=== PATIENT | male | born 1960 | race Caucasian/White ===

== ENCOUNTER → 2020-09-27 09:38 | Outpatient (REF) | payer OTHER, MEDICAID, SELFPAY | LOC: ANHLAB 09:38 | PROVIDERS: PCP Internal Medicine; Visit Provider Nurse Practitioner | DX: C44.111 Basal cell carcinoma of skin of unspecified eyelid, including canthus (principal) | CPT/HCPCS: 88305 ==

== ENCOUNTER → 2020-11-25 09:25 | Outpatient (REF) | payer OTHER, MEDICAID, SELFPAY | LOC: ANHLAB 09:25 | PROVIDERS: PCP Internal Medicine; Visit Provider Nurse Practitioner | DX: C44.111 Basal cell carcinoma of skin of unspecified eyelid, including canthus (principal) | CPT/HCPCS: 88305; 88331 ==

== ENCOUNTER 2024-09-23 14:37 | Emergency (ER) | payer MEDICARE, MEDICAID, SELFPAY ==
[2024-09-23] VITALS (7 sets, daily range): BP systolic 175–223; BP diastolic 94–109; PULSE 68–84; RESP 15–18; TEMP 36.6–36.7; O2SAT 98–100
--- OUTSIDE RECORDS SUMMARY | 2024-09-23 15:13 | XMS_ITS | Continuity of Care Document ---
Author Organization [facility] Main Address [address] [place] [address] Insurance Providers Payer Plan Claims Address Claims Phone Policy Number Group Number Relation Employer Guarantor Name Guarantor Guarantor Address Guarantor Phone [employer] [address], [place] [address] tel:[phone] [id number] Self Fredrick Nye [address] [place] [id number] [employer] [address], [place] [address] tel:[phone] Self Fredrick Wu [address] [place] [address] [id number] [facility] [address] [address] [address] tel:[phone] Self Fredrick Wu [address] [place] [address] [id number] Problems Unknown Problems Results No Results Allergies, adverse reactions, alerts No known allergies and adverse reactions Immunizations Vaccine Route Date Status influenza 05/30/2024 Completed Pneumococcal 05/30/2024 Completed Zoster recombinant 05/30/2024 Completed Medications No administered medications reported Vital Signs Date Vital Result Comment 09/21/2023 Inhaled Oxygen Concentration (3150-0) 21. 0 % N Faces Pain Scale (06804-2) 0.0 N Temperature (8310-5) 97.5 [degF] N Oxygen Saturation (38110-8) 96 % N Respiratory Rate (9279-1) 16 /min N Heart Rate (8867-4) 70 /min N Blood Pressure Systolic (8480-6) 144 mm[Hg] N Blood Pressure Diastolic (8462-4) 78 mm[Hg] N Body Height (8302-2) 66 [in_i] N Body Weight (37549-2) 215 [lb_av] N Body Mass Index (65163-8) 34.7 kg/m2 N 03/23/2024 Inhaled Oxygen Concentration (3150-0) 21. 0 % N Temperature (8310-5) 97.8 [degF] N Oxygen Saturation (13659-6) 98 % N Respiratory Rate (9279-1) 16 /min N Heart Rate (8867-4) 60 /min N Blood Pressure Systolic (8480-6) 139 mm[Hg] N Blood Pressure Diastolic (8462-4) 75 mm[Hg] N Body Height (8302-2) 66 [in_i] N 06/01/2024 Inhaled Oxygen Concentration (3150-0) 21. 0 % N Temperature (8310-5) 97.9 [degF] N Oxygen Saturation (69978-7) 97 % N Respiratory Rate (9279-1) 16 /min N Heart Rate (8867-4) 74 /min N Blood Pressure Systolic (8480-6) 153 mm[Hg] N Blood Pressure Diastolic (8462-4) 76 mm[Hg] N Body Height (8302-2) 66 [in_i] N Body Weight (93238-5) 221 [lb_av] N Body Mass Index (23834-5) 35.7 kg/m2 N Social History No smoking Hx information available Functional Status Category Condition Date Problem (Feeding: Independent) Feeding: Independ ent 09/21/2023 Problem (Bathing: Independen t (or in shower)) Bathing: Independent (or in shower) 09/21/2023 Problem (Grooming: Independe nt face/hair/teeth/ shaving (implements provided)) Grooming: Independent face/hair/teeth/ shaving (implements provided) 09/21/2023 Problem (Dressing: Independe nt (including buttons, zips, laces, etc.)) Dressing: Independent (including buttons, zips, laces, etc.) 09/21/2023 Problem (Bowels: Continent) Bowels: Continent Problem (Bladder: Continent) Bladder: Continent 09/21/2023 Problem (Toilet use: Indepen dent (on and off, dressing, wiping)) Toilet use: Independent (on and off, dressing, wiping) 09/21/2023 Problem (Transfers (bed to c hair and back): Independent) Transfers (bed to chair and back): Independent 09/21/2023 Problem (Mobility (on level surfaces): Independent (but may use any aid; for example, stick) >50 yards) Mobility (on level surfaces): Independent (but may use any aid; for example, stick) >50 yards 09/21/2023 Problem (Stairs: Independent) Stairs: Independen t 09/21/2023 Problem (Total score: 100) Total score: 100 08/30 Problem (Bathing: Independen t (or in shower)) Bathing: Independent (or in shower) 05/31/2024 Problem (Stairs: Independent) Stairs: Independen t 05/31/2024 Problem (Feeding: Independent) Feeding: Independ ent 05/31/2024 Problem (Mobility (on level surfaces): Independent (but may use any aid; for example, stick) >50 yards) Mobility (on level surfaces): Independent (but may use any aid; for example, stick) >50 yards 05/31/2024 Problem (Bowels: Continent) Bowels: Continent Problem (Total score: 100) Total score: 100 04/2024 Problem (Dressing: Independe nt (including buttons, zips, laces, etc.)) Dressing: Independent (including buttons, zips, laces, etc.) 05/31/2024 Problem (Toilet use: Indepen dent (on and off, dressing, wiping)) Toilet use: Independent (on and off, dressing, wiping) 05/31/2024 Problem (Grooming: Independe nt face/hair/teeth/ shaving (implements provided)) Grooming: Independent face/hair/teeth/ shaving (implements provided) 05/31/2024 Problem (Transfers (bed to c hair and back): Independent) Transfers (bed to chair and back): Independent 05/31/2024 Problem (Bladder: Continent) Bladder: Continent 05/31/2024 Problem (Feeding: Independent) Feeding: Independ ent 06/01/2024 Problem (Bathing: Independen t (or in shower)) Bathing: Independent (or in shower) 06/01/2024 Problem (Grooming: Independe nt face/hair/teeth/ shaving (implements provided)) Grooming: Independent face/hair/teeth/ shaving (implements provided) 06/01/2024 Problem (Dressing: Independe nt (including buttons, zips, laces, etc.)) Dressing: Independent (including buttons, zips, laces, etc.) 06/01/2024 Problem (Bowels: Continent) Bowels: Continent Problem (Bladder: Continent) Bladder: Continent 06/01/2024 Problem (Toilet use: Indepen dent (on and off, dressing, wiping)) Toilet use: Independent (on and off, dressing, wiping) 06/01/2024 Problem (Transfers (bed to c hair and back): Independent) Transfers (bed to chair and back): Independent 06/01/2024 Problem (Mobility (on level surfaces): Independent (but may use any aid; for example, stick) >50 yards) Mobility (on level surfaces): Independent (but may use any aid; for example, stick) >50 yards 06/01/2024 Problem (Stairs: Independent) Stairs: Independen t 06/01/2024 Problem (Total score: 100) Total score: 100 04/2024 Mental Status Category Condition Date Cognitive function Normal 06/01/2024
--- OUTSIDE RECORDS SUMMARY | 2024-09-23 15:13 | XMS_ITS | Referral Summary ---
Author Organization [facility] Care Team Providers Care Catheter Builder Name Role Phone John Syed MD Primary Care Provider [phone] Allergies Active Allergy Reactions Criticality Noted Date Comments Metformin Diarrhea High 08/30/2019 Medications albuterol HFA (PROVENTIL HFA,VENTOLIN HFA,PROAIR HFA) 90 mcg/actuation inhaler Inhale 2 puffs every 6 (six) hours as needed 05/28/2019 Active amLODIPine (NORVASC) 10 mg tablet 09/26/2020 Active atorvastatin (LIPITOR) 80 mg tablet 09/26/2020 Active aspirin 81 mg enteric coated tablet Take 81 mg by mouth daily 01/18/2020 Active carBAMazepine (TEGretol) 200 mg tablet 09/26/2020 Active clopidogreL (PLAVIX) 75 mg tablet 09/26/2020 Active irbesartan (AVAPRO) 150 mg tablet 09/26/2020 Active levothyroxine (SYNTHROID) 50 mcg tablet 09/26/2020 Active metFORMIN XR (GLUCOPHAGE XR) 750 mg 24 hr tablet 10/15/2020 Active metoprolol XL (TOPROL-XL) 50 mg extended release tablet 09/26/2020 Acti ve omeprazole (PriLOSEC) 40 mg capsule 09/26/2020 Active potassium chloride ER 20 mEq CR tablet 09/26/2020 Activ e tamsulosin (FLOMAX) 0.4 mg extended release capsule 09/26/2020 Active topiramate (TOPAMAX) 100 mg tablet 09/26/2020 Active traZODone (DESYREL) 150 mg tablet 09/26/2020 Active venlafaxine (EFFEXOR) 75 mg tablet 09/26/2020 Active Active Problems Problem Noted Date Diagnosed 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 Immunizations Immunization Administration Dates Next Due Mera (J&J) SARS-CoV-2 Vaccination 05/29/2020 Social History Tobacco Use Types Packs/Day Years Used Date Smoking Tobacco: Never Smokeless Tobacco: Never Personal Safety Answer Date Recorded Getting School Help Needed Not on file 05/15 Sex and Gender Information Value Date Recorded Sex Assigned at Not on file Legal Sex Male 9:49 AM CDT Gender Identity Not on file Sexual Orientation Not on file Last Filed Vital Signs Vital Sign Reading Time Taken Comments Blood Pressure - - Pulse - - Temperature 36.6 C (97.8 F) 10/15/2020 1:13 PM CDT Respiratory Rate - - Oxygen Saturation - - Inhaled Oxygen Concentration - - Weight 102.1 kg (225 lb) 10/15/2020 1:13 PM CDT Height 167.6 cm (5' 6) 10/15/2020 1:13 PM CDT Body Mass Index 36.32 10/15/2020 1:13 PM CDT Plan of Treatment Not on file Insurance [facility] [employer] Care Teams Catheter Builder Relationship Specialty Start Date End Date John Syed MD PCP - General Family Practice 07/16/20
--- OUTSIDE RECORDS SUMMARY | 2024-09-23 15:13 | XMS_ITS | Clinical Summary ---
Author Organization [facility] HealthCare Care Team Providers Care Special Effects Artist Name Role Phone John Syed MD Primary Care Provider [phone] Allergies Active Allergy Reactions Criticality Noted Date [...] Next Due Mera (J&J) SARS-CoV-2 Vaccination 05/29/2020 Medical History Medical History Date Comments Heart disease Diabetes (HCC) History of kidney problems Family History Medical History Relation Name Comments Heart disease Other Relation Name Status Comments Other Social History Tobacco Use Types Packs/Day Years Used Date Smoking Tobacco: Never Smokeless Tobacco: Never Personal Safety Answer Date Recorded Getting School Help Needed Not on file 05/15 Sex and Gender Information Value Date Recorded Sex Assigned at Not on file Legal Sex Male 9:49 AM CDT Gender Identity Not on file Sexual Orientation Not on file Obstetrics History Last Filed Vital Signs Vital Sign Reading [...] Plan of Treatment Not on file Insurance [facility] [employer] Care Teams Special Effects Artist Relationship Specialty Start Date End Date John Syed MD PCP - General Family Practice 07/16/20
--- NOTE | 2024-09-23 15:45 | ED.RECABL ---
HPI - Recheck/Abnormal Lab/Rx General Chief Complaint: Recheck/Abnormal Lab/Rx Stated Complaint: headache, htn Time Seen by Provider: 09/23/24 14:49 Source: patient and RN notes reviewed Mode of arrival: ambulatory Limitations: no limitations History of Present Illness HPI narrative: 64 y/o WM in the ED from [facility] with elevated BP. PMI of hypertension, cerebral palsy, diabetes, CAD, and seizures. Pt has hx of HTN, currently on Amlodipine and Losartan. Pt endorses migraine KEMP, no worse than normal, usually take Tylenol for KEMP. States KEMP to front of head, near eyes. Pt denies photophobia, vision issues, N/V. Pt denies CP, SOB, abd pain, dizziness. Pt states he took all the meds the CT gave him this am. Patient also endorsing increased seizure activity, denies loss of consciousness and/or bowel and bladder. States his right arm is shaking a lot lately. Related Data Home Medications ?Medication ?Instructions ?Recorded ?Confirmed ?Last Taken ?Type albuterol sulfate 90 mcg/actuation 1 inh inhalation Q4H 09/27/20 Unknown History aerosol inhaler (ProAir HFA) amlodipine 10 mg tablet 10 mg PO DAILY 09/27/20 Unknown History aspirin 81 mg tablet,delayed 81 mg PO DAILY 09/27/20 Unknown History release (Adult Aspirin Regimen) atorvastatin 80 mg tablet 80 mg PO DAILY 09/27/20 Unknown History carbamazepine 200 mg tablet 200 mg PO Q12H 09/27/20 Unknown History clopidogrel 75 mg tablet 75 mg PO DAILY 09/27/20 Unknown History folic acid 1 mg tablet 1 mg PO DAILY 09/27/20 Unknown History irbesartan 150 mg tablet 150 mg PO DAILY 09/27/20 Unknown History levothyroxine 50 mcg capsule 50 mcg PO DAILY 09/27/20 Unknown History metoprolol succinate 50 mg 50 mg PO DAILY 09/27/20 Unknown History tablet,extended release 24 hr nitroglycerin 0.4 mg sublingual 0.4 mg sublingual Q5M PRN 09/27/20 Unknown History tablet (Nitrostat) omeprazole 40 mg capsule,delayed 40 mg PO DAILY 09/27/20 Unknown History release potassium chloride 20 mEq oral 20 meq PO DAILY 09/27/20 Unknown History packet tamsulosin 0.4 mg capsule 0.4 mg PO DAILY 09/27/20 Unknown History topiramate 100 mg tablet 100 mg PO DAILY 09/27/20 Unknown History tramadol 50 mg tablet 50 mg PO Q6H PRN 09/27/20 Unknown History trazodone 150 mg tablet 150 mg PO QHS PRN 09/27/20 Unknown History venlafaxine 75 mg tablet 75 mg PO DAILY 09/27/20 Unknown History Allergies Allergy/AdvReac Type Severity Reaction Status Date / Time metformin Allergy Diarrhea Verified 09/23/24 14:48 [facility] Past Medical History Medical History GI bleed Seizure disorder Hypertension Diabetes Cerebral palsy CAD (coronary artery disease) Family History Family History Other Cerebrovascular accident Diabetes mellitus Family history of seizure disorder Social History Social History Second hand tobacco smoke exposure: No Alcohol intake: never Exam Narrative: GENERAL: Well-appearing, well-nourished, and in no acute distress. HEAD: Normocephalic, atraumatic. EYES: PERRLA and EOMI. ENT: Nares clear, no rhinorrhea or epistaxis. Mucous membranes moist. NECK: Supple. CHEST: Clear to auscultation. No respiratory distress. HEART: Regular rate and rhythm. No murmur heard. Normal peripheral pulses. ABDOMEN: Soft, nontender, nondistended, normal active bowel sounds. EXTREMITIES: Normal range of motion to left, minimal w/ right d/t cerebral palsy. No edema. SKIN: Warm, dry, no rash. NEURO: right UE contracture and noted tremor. Alert and oriented x3. PSYCH: Normal mood and affect. Course Vital Signs Vital signs: Vital Signs Temperature 36.7 C 09/23/24 14:43 Pulse Rate 68 09/23/24 14:43 Respiratory Rate 16 09/23/24 14:43 Blood Pressure 196/98 H 09/23/24 14:43 Pulse Oximetry 100 09/23/24 14:43 Oxygen Delivery Room Air 09/23/24 14:43 Temperature 36.6 C 09/23/24 17:31 Pulse Rate 82 09/23/24 17:31 Respiratory Rate 18 09/23/24 17:31 Blood Pressure 187/107 H 09/23/24 17:31 Pulse Oximetry 98 09/23/24 17:31 Oxygen Delivery Room Air 09/23/24 14:43 MDM - Recheck/Abnormal Lab/Rx MDM Narrative Medical decision making narrative: HPI: 64 y/o WM in the ED from [facility] with elevated BP. PMI of hypertension, cerebral palsy, diabetes, CAD, and seizures. Pt has hx of HTN, currently on Amlodipine and Losartan. Pt endorses migraine KEMP, no worse than normal, usually take Tylenol for KEMP. States KEMP to front of head, near eyes. Pt denies photophobia, vision issues, N/V. Pt denies CP, SOB, abd pain, dizziness. Pt states he took all the meds the CT gave him this am. Patient also endorsing increased seizure activity, denies loss of consciousness and/or bowel and bladder. States his right arm is shaking a lot lately. My Plan Labs Ordered: CBC, CMP, U/A Imaging Ordered: None Medications Ordered: Tylenol for KEMP, hydrochlorothiazide for blood pressure Results: CBC unremarkable, CMP shows GFR of 86, Urine shows 1+ protien in the urine Diagnosis: Hypertensive urgency, headache, essential tremor Risks: Consults: Patient given hydrochlorothiazide in the emergency room blood pressure lowered to 180/90s. Patient has no indications of end-organ damage and is continuing to be asymptomatic. We released the patient back to skilled nursing with hydrochlorothiazide prescription. Headache resolved with Tylenol menstruation. Patient's belief of seizure activity is more likely related to essential tremor based off lack of loss of consciousness and postictal state. Differential Diagnosis Differential diagnosis: Likely other (elevated BP, essential tremor, KEMP, migraine w/o aura, seizure, hypertensive emergency) Medical Records Attestation: I reviewed the patient's medical records. Lab Data Attestation: I reviewed the patient's lab results. 09/23/24 15:32 09/23/24 15:32 Labs: Lab Results 09/23/24 Range/Units 15:32 WBC 8.5 (4.5-10.0) K/mm3 RBC 4.83 (4.6-6.20) M/mm3 Hgb 14.0 (14.0-18.0) g/dL Hct 41.9 L (42.0-52.0) % MCV 86.7 (80-100) fl MCH 29.0 (26-34) pg MCHC 33.4 (32-36) g/dl RDW 14.3 (11.5-14.5) % Plt Count 161 (150-375) k/mm3 MPV 8.9 (7.4-10.4) fl Immature Gran % (Auto) 0.5 (0-0.5) % Neut % (Auto) 83.1 H (45.5-73.1) % Lymph % (Auto) 8.2 L (18.3-44.2) % [place] % (Auto) 6.9 (2.6-8.5) % Eos % (Auto) 0.8 (0-4.4) % Baso % (Auto) 0.5 (0.2-1.2) % Lymph # (Auto) 0.70 L (0.9-3.2) K/mm3 [place] # (Auto) 0.6 (0.1-0.6) K/mm3 Eos # (Auto) 0.1 (0-0.3) K/mm3 Baso # (Auto) 0.0 (0.0-0.1) K/mm3 Abs Immat Gran (auto) 0.04 H (0.00-0.031) K/mm3 Absolute Neuts (auto) 7.1 H (1.3-6.7) K/mm3 Absolute Nucleated RBC 0.000 (0.0-0.012) K/mm3 Nucleated RBC % 0.0 (0.0-0.2) % Sodium 132 L (137-145) mmol/L Potassium 3.8 (3.4-5.0) mmol/L Chloride 102 (98-107) mmol/L Carbon Dioxide 24 (22-30) mmol/L Anion Gap 6 (4-12) mmol/L BUN 18 (9-20) mg/dL Creatinine 0.81 (0.7-1.3) mg/dL Estim Creat Clear Calc 86 ml/min Estimated GFR > 60 (59 - ) Glucose 139 H (65-110) mg/dL Calcium 9.1 (8.4-10.2) mg/dL Total Bilirubin 0.3 (0.2-1.3) mg/dL AST 22 (17-59) U/L ALT 24 (6-50) U/L Alkaline Phosphatase 169 H (38-126) U/L Total Protein 7.1 (6.3-8.2) g/dL Albumin 4.5 (3.5-5.1) g/dL Urine Color Yellow (Yellow) Urine Appearance Cloudy H (Clear) Urine pH 8.0 (5.0-9.0) Ur Specific Kite 1.015 (1.001-1.035) Urine Protein 1+ H (Negative) mg/dL Urine Glucose (UA) 1+ H (Negative) mg/dL Urine Ketones Negative (Negative) mg/dL Ur Blood (Man) Negative (Negative) Urine Nitrate Negative (Negative) Urine Bilirubin Negative (Negative) Urine Urobilinogen 0.2 (<2.0) mg/dL Leukocyte Esterase Rfl Negative (Negative) SARAH/UL Urine RBC 0-2 (0-2) /hpf Urine WBC 0-5 (0-3) /hpf Ur Squamous Epith Cells None seen (Few) /hpf Urine Bacteria None seen /hpf Urine Casts 0-2 Discharge Plan Discharge Clinical Impression: Benign essential tremor Hypertension Qualifiers: Hypertension type: unspecified Qualified Code(s): I10 - Essential (primary) hypertension Headache Qualifiers: Headache type: unspecified Headache chronicity pattern: acute headache Intractability: not intractable Qualified Code(s): R51.9 - Headache, unspecified Patient Disposition: SNF Condition: Stable Instructions: Acute Headache (ED), Hypertensive Crisis (ED), Tremors (ED) Additional Instructions: Taking blood pressure medicines include new one as prescribed. Please return to the ER with any worsening symptoms. ?Follow-up with primary care provider as soon as possible. ?Take all medications as prescribed, including regularly scheduled medications. Patient Language: Jordanian Prescriptions: New hydrochlorothiazide 12.5 mg tablet 12.5 mg PO BID Qty: 30 0RF No Action albuterol sulfate [ProAir HFA] 90 mcg/actuation HFA aerosol inhaler 1 inh inhalation Q4H amlodipine 10 mg tablet 10 mg PO DAILY aspirin [Adult Aspirin Regimen] 81 mg tablet,delayed release (DR/EC) 81 mg PO DAILY atorvastatin 80 mg tablet 80 mg PO DAILY carbamazepine 200 mg tablet 200 mg PO Q12H clopidogrel 75 mg tablet 75 mg PO DAILY folic acid 1 mg tablet 1 mg PO DAILY irbesartan 150 mg tablet 150 mg PO DAILY levothyroxine 50 mcg capsule 50 mcg PO DAILY metoprolol succinate 50 mg tablet extended release 24 hr 50 mg PO DAILY nitroglycerin [Nitrostat] 0.4 mg tablet, sublingual 0.4 mg sublingual Q5M PRN Rx Instructions: do not exceed 3 doses per episode omeprazole 40 mg capsule,delayed release(DR/EC) 40 mg PO DAILY potassium chloride 20 mEq packet 20 meq PO DAILY tamsulosin 0.4 mg capsule 0.4 mg PO DAILY topiramate 100 mg tablet 100 mg PO DAILY tramadol 50 mg tablet 50 mg PO Q6H PRN trazodone 150 mg tablet 150 mg PO QHS PRN venlafaxine 75 mg tablet 75 mg PO DAILY hydrocodone-acetaminophen 5-325 mg tablet 1 tablet PO Q6H PRN (Reason: pain) Qty: 15 0RF Follow-up/Referrals: Kunal,John Dupont MD [Primary Care Provider] - 1 Week Stand Alone Forms: Snf Discharge
[2024-09-23 15:50] LABS: Hematocrit 41.9 % (42.0-52.0); Hemoglobin 14.0 g/dL (14.0-18.0); Immature Granulocyte Percent A 0.5 % (0-0.5); Lymphocytes Absolute Auto 0.70 K/mm3 (0.9-3.2); Mean Corpuscular HGB Conc 33.4 g/dl (32-36); Mean Corpuscular Hemoglobin 29.0 pg (26-34); Mean Corpuscular Volume 86.7 fl (80-100); Nucleated Red Blood Cells Absolute Auto 0.000 K/mm3 (0.0-0.012); Nucleated Red Blood Cells Perc 0.0 % (0.0-0.2); Platelet Count Result 161 k/mm3 (150-375); Red Blood Count 4.83 M/mm3 (4.6-6.20); White Blood Count 8.5 K/mm3 (4.5-10.0)
[2024-09-23] MEDS: ACETAMINOPHEN 500 MG TABLET 1000 MG PO (15:53)
[2024-09-23 15:57] LABS: Add Urine Microscopic? YES; Appearance Urine Cloudy (Clear); Glucose Urine UA 1+ mg/dL (Negative); Leukocyte Esterase Ur Negative LEU/UL (Negative); Nitrate Urine Negative (Negative); Non Pathogenic Casts 0-2; Specific Grav Ur 1.015 (1.001-1.035)
[2024-09-23 16:17] LABS: Alanine Aminotransferase 24 U/L (6-50); Albumin Level 4.5 g/dL (3.5-5.1); Alkaline Phosphatase 169 U/L (38-126); Anion Gap 6 mmol/L (4-12); Aspartate Amino Transferase 22 U/L (17-59); Bilirubin,Total 0.3 mg/dL (0.2-1.3); Blood Urea Nitrogen 18 mg/dL (9-20); Calcium 9.1 mg/dL (8.4-10.2); Carbon Dioxide 24 mmol/L (22-30); Chloride 102 mmol/L (98-107); Estimated CRCL calculation 86 ml/min; Estimated Glomerular Filt Rate > 60; Glucose 139 mg/dL (65-110); Potassium 3.8 mmol/L (3.4-5.0); Sodium 132 mmol/L (137-145); Total Protein 7.1 g/dL (6.3-8.2)
== END 2024-09-23 19:12 | disposition home or self-care (01) ==
PROVIDERS: Emergency Provider Registered Nurse Emergency; PCP Family Medicine
DX: R25.1 Tremor, unspecified (principal); R51.9 Headache, unspecified; I10 Essential (primary) hypertension; G80.9 Cerebral palsy, unspecified; E11.9 Type 2 diabetes mellitus without complications; I25.10 Atherosclerotic heart disease of native coronary artery without angina pectoris; G40.909 Epilepsy, unspecified, not intractable, without status epilepticus
CPT/HCPCS: 36415; 80053; 81001; 85025; 99283; A9270

== ENCOUNTER 2024-10-24 09:26 | Outpatient (CLI) | payer MEDICARE, MEDICAID, SELFPAY ==
--- NOTE | ~2024-10-24 | XR_ITS ---
XR knee LT min 4V 10/24/2024 10:11 Indication: Left knee pain Procedure: 4 views left knee Comparison: No prior studies for comparison. Findings: No fracture, subluxation or dislocation. No significant soft tissue abnormality. No foreign bodies. No joint effusion. There is a small surgical clip in the soft tissues medial to the tibia. Impression: 1: No significant bone or joint abnormality. Reviewed, dictated and finalized at location O. Impression: 1: No significant bone or joint abnormality.
== END 2024-10-24 09:27 | disposition home or self-care (01) ==
PROVIDERS: PCP Family Medicine; Visit Provider Orthopaedic Surgery
DX: M25.562 Pain in left knee (principal)
CPT/HCPCS: 73564